=== PATIENT | male | born 1985 ===

== ENCOUNTER 2022-09-19 11:26 | Inpatient (IN) ==
[2022-09-20 06:37] LABS: Albumin 2.3 g/dL (3.2-5.2); Albumin/Globulin Ratio 0.7 (1-3); Calcium 8.1 mg/dL (8.6-10.3); Creatinine, Serum 1.22 mg/dL (0.67-1.17); Globulin 3.3 g/dL (2-4); Potassium 3.7 mmol/L (3.5-5.0); Total Bilirubin 3.2 mg/dL (0.2-1.0); Total Protein 5.6 g/dL (6.4-8.9); eGFR CKD-EPI 77.8 (>60)
[2022-09-20] MEDS ORDERED: Buprenorp/Nalox 4-1 MG FILM SL SCH (09:00)
[2022-09-20] MEDS: Buprenorp/Nalox 2-0.5 mg SL TB SL SCH (10:00)
[2022-09-20] MEDS ORDERED: ASENAPINE 5 MG SL PRN (19:21)
[2022-09-21 06:34] LABS: Red Blood Count 3.03 10^6 /uL (4.18-5.48)
[2022-09-21 06:56] LABS: Albumin 2.4 g/dL (3.2-5.2); Calcium 8.3 mg/dL (8.6-10.3); Potassium 4.1 mmol/L (3.5-5.0); Total Bilirubin 3.2 mg/dL (0.2-1.0)
[2022-09-21 07:02] LABS: Albumin/Globulin Ratio 0.7 (1-3); Creatinine, Serum 1.4 mg/dL (0.67-1.17); Globulin 3.6 g/dL (2-4)
[2022-09-21 07:17] LABS: INR 2.2 (0.88-1.18)
[2022-09-21] MEDS: Buprenorp/Nalox 2-0.5 mg SL TB SL SCH (08:26)
[2022-09-21 08:33] LABS: Hematocrit 30 % (42-52); Mean Corpuscular HGB Conc 33 g/dL (31-36); Mean Corpuscular Hemoglobin 33 pg (27-31); Mean Corpuscular Volume 99 fL (80-94); Mean Platelet Volume 11.3 fL (7.4-10.4); Platelet Count 69 10^3/uL (150-450); Red Cell Distribution Width 16 % (10-15); White Blood Count 2.6 10^3/uL (3.5-10.8)
[2022-09-21 08:34] LABS: ABS Eosinophils 0.1 10^3/ul (0-0.6); ABS Lymphocytes 0.5 10^3/ul (1.0-4.8); ABS Monocytes 0.5 10^3/ul (0-0.8); ABS Neutrophils 1.5 10^3/ul (1.5-7.7); Eosinophil % 2.8 %
[2022-09-22] MEDS: Buprenorp/Nalox 2-0.5 mg SL TB SL SCH (08:28)
[2022-09-23 07:57] LABS: ALT 31 U/L (7-52); Albumin 2.4 g/dL (3.2-5.2); Albumin/Globulin Ratio 0.6 (1-3); Alkaline Phosphatase 94 U/L (35-149); Blood Urea Nitrogen 11 mg/dL (6-24); CO2 Carbon Dioxide 32 mmol/L (22-32); Calcium 8.4 mg/dL (8.6-10.3); Chloride 96 mmol/L (101-111); Creatinine, Serum 1.09 mg/dL (0.67-1.17); Globulin 3.7 g/dL (2-4); Glucose 105 mg/dL (70-100); Sodium 134 mmol/L (135-145); Total Protein 6.1 g/dL (6.4-8.9); eGFR CKD-EPI 89.1 (>60)
[2022-09-23 08:05] LABS: Anion Gap 6 mmol/L (2-11)
[2022-09-23] MEDS: Buprenorp/Nalox 2-0.5 mg SL TB SL SCH (08:48)
[2022-09-23 09:32] LABS: Potassium Redraw 3.9 mmol/L (3.5-5.0)
[2022-09-23] MEDS: Lactulose 30 ml UDC PO SCH ×3 (14:18→21:37)
[2022-09-24] MEDS: Lactulose 30 ml UDC PO SCH ×6 (00:04→21:45)
[2022-09-24] MEDS: Buprenorp/Nalox 2-0.5 mg SL TB SL SCH (09:23)
[2022-09-25] MEDS: Lactulose 30 ml UDC PO SCH ×6 (00:06→21:02)
[2022-09-25] MEDS: Buprenorp/Nalox 2-0.5 mg SL TB SL SCH (07:32)
[2022-09-26] MEDS: Lactulose 30 ml UDC PO SCH ×6 (06:18→21:30)
[2022-09-26 07:01] LABS: Albumin 1.9 g/dL (3.2-5.2); Albumin/Globulin Ratio 0.6 (1-3); Calcium 7.9 mg/dL (8.6-10.3); Creatinine, Serum 1.06 mg/dL (0.67-1.17); Globulin 3.4 g/dL (2-4); Potassium 3.9 mmol/L (3.5-5.0); Total Bilirubin 2.1 mg/dL (0.2-1.0); Total Protein 5.3 g/dL (6.4-8.9); eGFR CKD-EPI 92.1 (>60)
[2022-09-26] MEDS: Buprenorp/Nalox 2-0.5 mg SL TB SL SCH (08:08)
[2022-09-27] MEDS: Lactulose 30 ml UDC PO SCH ×3 (00:26→08:35)
[2022-09-27 05:43] VITALS: BP 154/85
[2022-09-27] MEDS: Buprenorp/Nalox 2-0.5 mg SL TB SL SCH (08:35)
== END 2022-09-27 11:32 | disposition home or self-care (01) ==
LOC: PMRU 12:40
PROVIDERS: ADMIT Physical Medicine & Rehabilitation; ATTEND Physical Medicine & Rehabilitation